=== PATIENT | female | born 1990 | race Caucasian/White ===

== ENCOUNTER 2017-04-10 09:01 | Inpatient (IN) | payer BC ==
[2017-04-10] MEDS ORDERED: Aluminum Hydroxide/Magnesium Hydroxide/Simethicone Susp 30 ML Cup PO PRN (10:18)
[2017-04-10] MEDS ORDERED: Ondansetron 4 MG/2 ML SDV IVPUSH PRN ×2 (10:18→14:20)
[2017-04-10] MEDS ORDERED: Nalbuphine 20 MG/1 ML Amp IVPUSH PRN (10:18)
[2017-04-10] MEDS ORDERED: Oxytocin/Lactated Ringers 10 UNIT/1,000 ML BAG IV SCH (10:30)
[2017-04-10] MEDS: Lactated Ringers 1,000 ML IV SCH ×3 (13:30→17:17)
[2017-04-10] MEDS ORDERED: diphenhydrAMINE 50 MG/ML SDV IVPUSH PRN (14:20)
[2017-04-10] MEDS ORDERED: fentaNYL 100 MCG/2 ML SDV EPIDUR PRN (14:20)
--- NOTE | 2017-04-10 14:23 | PCM.PREANE ---
Preanesthetic Assessment - Anesthesia/Transfusion/Family Hx Anesthesia History: No Prior Anesthesia Family History of Anesthesia Reaction: No Transfusion History: No Prior Transfusion(s) Intubation History: Unknown - Review of Systems General: No Symptoms, Other (Finished Z pack 2 days ago for a cough/cold. Feels much better now. ) Pulmonary: No Symptoms Cardiovascular: No Symptoms Gastrointestinal: No Symptoms Neurological: No Symptoms - Physical Assessment Pulse: 73 O2 Sat by Pulse Oximetry: 100 Respiratory Rate: 16 Blood Pressure: 120/72 Vital Signs: Last Vital Signs Temp 36.6 C 04/10/17 10:13 Pulse 71 04/10/17 10:13 Resp 16 04/10/17 10:13 BP 123/76 04/10/17 10:13 Pulse Ox 100 04/10/17 10:13 Height: 1.7 m Weight: 70.851 kg ASA Class: 2 Mental Status: Alert & Oriented x3 Airway Class: Mallampati = 1 Dentition: Reports: Normal Dentition Thyro-Mental Finger Breadths: 3 Mouth Opening Finger Breadths: 3 ROM/Head Extension: Full Lungs: Clear to Auscultation, Normal Respiratory Effort Cardiovascular: Regular Rate, Regular Rhythm - Lab Values: Laboratory Last Values WBC 12.39 K/mm3 (3.98-10.04) H 04/10/17 10:00 RBC 4.27 M/mm3 (3.98-5.22) 04/10/17 10:00 Hgb 13.5 gm/L (11.2-15.7) 04/10/17 10:00 Hct 39.1 % (34.1-44.9) 04/10/17 10:00 MCV 91.6 fl (79.4-94.8) 04/10/17 10:00 MCH 31.6 pg (25.6-32.2) 04/10/17 10:00 MCHC 34.5 g/dl (32.2-35.5) 04/10/17 10:00 RDW Std Deviation 41.1 fL (36.4-46.3) 04/10/17 10:00 Plt Count 324 K/mm3 (182-369) 04/10/17 10:00 MPV 10.5 fl (9.4-12.3) 04/10/17 10:00 Neut % (Auto) 73.3 % (34.0-71.1) H 04/10/17 10:00 Lymph % (Auto) 16.9 % (19.3-51.7) L 04/10/17 10:00 [place] % (Auto) 8.2 % (4.7-12.5) 04/10/17 10:00 Eos % (Auto) 0.6 (0.7-5.8) L 04/10/17 10:00 Baso % (Auto) 0.2 % (0.1-1.2) 04/10/17 10:00 Neut # (Auto) 9.09 K/mm3 (1.56-6.13) H 04/10/17 10:00 Lymph # (Auto) 2.10 K/mm3 (1.18-3.74) 04/10/17 10:00 [place] # (Auto) 1.01 K/mm3 (0.24-0.36) H 04/10/17 10:00 Eos # (Auto) 0.07 K/mm3 (0.04-0.36) 04/10/17 10:00 Baso # (Auto) 0.02 K/mm3 (0.01-0.08) 04/10/17 10:00 Membrane Rupture Positive H 04/10/17 09:29 - Allergies Allergies/Adverse Reactions: Allergies Allergy/AdvReac Type Severity Reaction Status Date / Time guaifenesin [From Robitussin] Allergy Hives Verified 04/10/17 11:42 - Acknowledgements Anesthesia Type Planned: Epidural Pt an Appropriate Candidate for the Planned Anesthesia: Yes Alternatives and Risks of Anesthesia Discussed w Pt/Guardian: Yes Pt/Guardian Understands and Agrees with Anesthesia Plan: Yes PreAnesthesia Questionnaire - Past Surgical History HEENT Surgical History: Reports: Oral Surgery Other HEENT Surgeries/Procedures: [place] Teeth 2007 - SUBSTANCE USE Smoking Status *Q: Never Smoker Recreational Drug Use History: No - HOME MEDS Home Medications: Home Meds Pnv No.122/Iron/Folic Acid [ Multi Tablet] 1 each PO DAILY 03/28/17 [ History] - CURRENT (IN HOUSE) MEDS Current Meds: Current Medications Al Hydroxide/Mg Hydroxide (Mag-Al Plus) 30 ml PO Q8H PRN PRN Reason: Heartburn Lactated Ringer's (Ringers, Lactated) 1,000 mls @ 100 mls/hr IV ASDIRECTED NATALEE Last Admin: 04/10/17 13:30 Dose: 100 mls/hr Oxytocin/Lactated Ringer's (Pitocin In Lr 10 Units/1,000 Ml) 10 unit in 1,000 mls @ 100 mls/hr IV .CONTINUOUS NATALEE Oxytocin 10 unit/ Lactated (Ringer's) 1,001 mls @ 12.01 mls/hr IV TITRATE NATALEE; 2 MUNITS/MIN PRN Reason: Protocol Last Admin: 04/10/17 14:00 Dose: 2 munits/min, 12 mls/hr Measles/Mumps/Rubella Vaccine Live (M-M-R Ii Vaccine) 0.5 ml SUBCUT .ONCE ONE Stop: 04/11/17 12:02 Nalbuphine HCl (Nubain) 10 mg IVPUSH Q2H PRN PRN Reason: Pain (moderate 4-6) Ondansetron HCl (Zofran) 4 mg IVPUSH Q4H PRN PRN Reason: Nausea/Vomiting
[2017-04-10] MEDS ORDERED: Bupivacaine/fentaNYL/NS 100 ML Bag EPIDUR SCH (14:30)
--- NOTE | 2017-04-10 19:46 | PCM.LDHP ---
L&D History of Present Illness - General Date of Service: 04/10/17 Admit Problem/Dx: Patient Status Order with Admit Dx/Problem 04/10/17 09:29 Patient Status [ADT] Routine 04/10/17 10:13 Patient Status [ADT] Routine Admission Diagnosis/Problem Admission Diagnosis/Problem 04/10/17 19:37 39-5/7 week intrauterine , spontaneous rupture membranes, early active labor. Source of Information: Patient History Limitations: Reports: No Limitations - History of Present Illness Introduction:: Michelle is a 26-year-old 1 para 0 white female who is admitted on the a.m. of 04/10/2017 with spontaneous rupture membranes and early active labor. Her SUZETTE is 04/12/2017 is based upon a ultrasound done 426 6-5/7 weeks gestational age. She's had 4 subsequent ultrasounds which were supportive of her . These being done on 09/19/2016, 12/14/2016, 12/28/2016 and 2016. She had spontaneous rupture of membranes with continuous leakage of clear amniotic fluid this a.m. Her cervix initially was 1-2 cm, approximately 80% effaced, posterior, -3 station, her amniotic fluid, soft. heart tones reassuring. [employer] history she is 1 para 0 with a certain last menstrual period started on 05/30/2016. Dating however is by early ultrasound at 6-5/7 weeks gestational age. Patient had menstrual cycles occurring every 28 days, menarche age 15. course was relatively unremarkable. She declined genetic evaluation on 10/17/2016. [place] depression score was 1 out of 30 on 11/13/2016. She had a history of Gardnerella vaginalis which was treated with metronidazole. Her group B strep screen is negative. She plans to breast-feed. She plans on epidural in labor and delivery report for analgesia. T dap was administered on 03/04/2017. Her first visit was on 09/19/2016 at 10-5/7 weeks gestational age. Her weight gain was from 129.6-146 pounds for a 26+ pound weight gain. Fundal height growth was appropriate. She was seen on a regular basis throughout . Her vital signs remained stable. Laboratory testing and : Blood is O+ with a negative and may screen. First labs show hemoglobin of 14.7 and a platelet count of 332,000. Pap smear was normal. She is rubella nonimmune. RPR is nonreactive. Hepatitis B and HIV assays were negative. Second trimester laboratory testing showed hemoglobin 12.9 and platelets 297,000. Her 1 hour GTT was normal at 65. Group B strep screen is negative. Allergies: Robitussin which causes hives Medications: 1. vitamins daily 2. Zyrtec 10 mg daily when necessary 3. Kass[place] allergy 180 mg tablets daily when necessary for allergies. Past medical history: Seasonal allergies otherwise Unremarkable Past surgical history: 1. Oral surgery 2007 Family history: Mother and father are alive and well. One sibling alive and well. Maternal grandmother alive with adult-onset diabetes mellitus. Maternal grandfather alive and well. Paternal grandmother alive and well. Paternal grandfather alive and well. No , anesthesia, bleeding or clotting problems noted in the family. Review of systems: In general patient is well-developed well-nourished pleasant female who upon admission is relatively comfortable. She is alert and oriented 3. Skin: Negative Cardiovascular: No chest pain or exercise tolerance Respiratory: No infectious symptoms or shortness of breath Breasts: Negative. Changes os with only GI: Negative : Changes associated including increased fundal height Musculoskeletal: Occasional minimal edema noted Neurological: Negative Physical exam: In general patient is well-developed, well-nourished, pleasant female stated age in no acute distress. Blood pressure 102/68, weight 153 and heart rate 121 on last evaluation in clinic. Her pregravid weight was 129.6, height 5 feet 7. Prepregnancy body mass index is 19.6. Skin is warm and dry without lesions. HEENT, neck and back within normal limits. Lungs are clear with good breath sounds in all lung kohler. Cardiovascular exam shows regular rate and rhythm without murmurs. Breast exam deferred abdomen done at first visit and found to be normal. Abdomen is protuberant with last fundal height in clinic at approximately 37 cm. Cervix as above Extremities neurological exam are grossly within normal limits. Pain Score: 10 - Related Data Allergies/Adverse Reactions: Allergies Allergy/AdvReac Type Severity Reaction Status Date / Time guaifenesin [From Robitussin] Allergy Hives Verified 04/10/17 11:42 Home Medications: Home Meds Pnv No.122/Iron/Folic Acid [ Multi Tablet] 1 each PO DAILY 03/28/17 [ History] Past Medical History - Past Surgical History HEENT Surgical History: Reports: Oral Surgery Other HEENT Surgeries/Procedures: [place] Teeth 2008 Social & Family History - Family History Family Medical History: Noncontributory - Tobacco Use Smoking Status *Q: Never Smoker - Caffeine Use Caffeine Use: Reports: None - Recreational Drug Use Recreational Drug Use: No H&P Review of Systems - Review of Systems: Review Of Systems: See Below L&D Exam - Exam Exam: See Below - Vital Signs Vital Signs: Last Vital Signs Temp 36.6 C 04/10/17 10:13 Pulse 73 04/10/17 14:23 Resp 16 04/10/17 14:23 BP 120/72 04/10/17 14:23 Pulse Ox 100 04/10/17 14:23 Weight: 70.851 kg - Patient Data Lab Results Last 24 hrs: Laboratory Results - last 24 hr 04/10/17 04/10/17 Range/Units 09:29 10:00 WBC 12.39 H (3.98-10.04) K/mm3 RBC 4.27 (3.98-5.22) M/mm3 Hgb 13.5 (11.2-15.7) gm/L Hct 39.1 (34.1-44.9) % MCV 91.6 (79.4-94.8) fl MCH 31.6 (25.6-32.2) pg MCHC 34.5 (32.2-35.5) g/dl RDW Std Deviation 41.1 (36.4-46.3) fL Plt Count 324 (182-369) K/mm3 MPV 10.5 (9.4-12.3) fl Neut % (Auto) 73.3 H (34.0-71.1) % Lymph % (Auto) 16.9 L (19.3-51.7) % [place] % (Auto) 8.2 (4.7-12.5) % Eos % (Auto) 0.6 L (0.7-5.8) Baso % (Auto) 0.2 (0.1-1.2) % Neut # (Auto) 9.09 H (1.56-6.13) K/mm3 Lymph # (Auto) 2.10 (1.18-3.74) K/mm3 [place] # (Auto) 1.01 H (0.24-0.36) K/mm3 Eos # (Auto) 0.07 (0.04-0.36) K/mm3 Baso # (Auto) 0.02 (0.01-0.08) K/mm3 Membrane Rupture Positive H Result Diagrams: 04/10/17 10:00 Problem List Initiated/Reviewed/Updated: Yes Orders Last 24hrs: Active Orders 24 hr Category Date Time Status Patient Status [ADT] Routine ADT 04/10/17 10:13 Active Activity as Tolerated [RC] PFP Care 04/10/17 10:13 Active Communication Order [RC] ASDIRECTED Care 04/10/17 10:13 Active Notify Provider [RC] ASDIRECTED Care 04/10/17 14:20 Active Vaccines to be Administered [RC] .discharge Care 04/10/17 12:01 Active Regular Diet [DIET] Diet 04/10/17 Lunch Active Alum Hydrox/Mag Hydrox/Simeth [Mag-Al Plus] Med 04/10/17 10:18 Active 30 ml PO Q8H PRN Bupivacaine/fentaNYL/NS [fentaNYL/Bupivacaine/NS 2 MCG- Med 04/10/17 14:30 Active 0.125% 100 ML] 100 ml EPIDUR ASDIRECTED Lactated Ringers [Ringers, Lactated] 1,000 ml Med 04/10/17 10:15 Active IV ASDIRECTED Measles, Mumps & Rubella [M-M-R II Vaccine] Med 04/11/17 12:01 Once 0.5 ml SUBCUT .ONCE ONE Nalbuphine [Nubain] Med 04/10/17 10:18 Active 10 mg IVPUSH Q2H PRN Ondansetron [Zofran] Med 04/10/17 10:18 Active 4 mg IVPUSH Q4H PRN Oxytocin [Pitocin] 10 unit Med 04/10/17 12:00 Active Lactated Ringers [Ringers, Lactated] 1,000 ml IV TITRATE Oxytocin/Lactated Ringers [Pitocin in LR 10 Units/1,000 Med 04/10/17 10:30 Active ML] 10 unit in 1,000 ml IV .CONTINUOUS diphenhydrAMINE [Benadryl] Med 04/10/17 14:20 Active 25 mg IVPUSH Q6H PRN Electronic Heart Tones Ext w TOCO [WOMSER] Oth 04/10/17 10:13 Ordered Routine Electronic Heart Tones Internal [WOMSER] Per Unit Ot 04/10/17 10:13 Ordered Routine Peripheral IV Insertion Adult [OM.PC] Routine Ot 04/10/17 10:13 Ordered Resuscitation Status Routine Resus Stat 04/10/17 09:29 Ordered Medication Orders Al Hydroxide/Mg Hydroxide (Mag-Al Plus) 30 ml PO Q8H PRN PRN Reason: Heartburn Diphenhydramine HCl (Benadryl) 25 mg IVPUSH Q6H PRN PRN Reason: Pruritis Fentanyl/Bupivacaine HCl (Fentanyl/Bupivacaine/Ns 2 Mcg-0.125% 100 Ml) 100 ml EPIDUR ASDIRECTED NATALEE Last Admin: 04/10/17 17:01 Dose: 100 ml Lactated Ringer's (Ringers, Lactated) 1,000 mls @ 100 mls/hr IV ASDIRECTED NATALEE Last Admin: 04/10/17 17:17 Dose: 100 mls/hr Infusion: 04/10/17 17:04 Dose: 999 mls/hr Admin: 04/10/17 16:03 Dose: 999 mls/hr Infusion: 04/10/17 16:03 Dose: 100 mls/hr Admin: 04/10/17 13:30 Dose: 100 mls/hr Oxytocin/Lactated Ringer's (Pitocin In Lr 10 Units/1,000 Ml) 10 unit in 1,000 mls @ 100 mls/hr IV .CONTINUOUS NATALEE Oxytocin 10 unit/ Lactated (Ringer's) 1,001 mls @ 12.01 mls/hr IV TITRATE NATLAEE; 2 MUNITS/MIN PRN Reason: Protocol Last Titration: 04/10/17 14:50 Dose: 4 munits/min, 24 mls/hr Admin: 04/10/17 14:00 Dose: 2 munits/min, 12 mls/hr Measles/Mumps/Rubella Vaccine Live (M-M-R Ii Vaccine) 0.5 ml SUBCUT .ONCE ONE Stop: 04/11/17 12:02 Nalbuphine HCl (Nubain) 10 mg IVPUSH Q2H PRN PRN Reason: Pain (moderate 4-6) Ondansetron HCl (Zofran) 4 mg IVPUSH Q4H PRN PRN Reason: Nausea/Vomiting Assessment/Plan Comment:: Assessment: Prep 1. 39-5/7 week intrauterine , spontaneous rupture membranes, early labor and prepped 2. Group B strep screen negative 3. Patient plans to nurse 4. Up-to-date regarding her Tdap and flu shot 5. Patient desires epidural in labor and delivery 6. Rubella immune Plan: 1. Anticipate normal spontaneous vaginal delivery 2. Intermittent electronic monitoring 3. Epidural as needed and 4. Encourage nursing 5. Routine labor care.
--- NOTE | 2017-04-10 21:35 | PCM.SN ---
- Free Text/Narrative Note: Michelle is a 26-year-old 1 now para 1001 white female who experienced spontaneous rupture membranes at 0500 hrs. on 04/10/2017. She almost immediately began having contractions. This labor progressed to every 3-5 minutes at which time patient called labor and delivery and was told to come in. Throughout the course of the day patient made steady progress to complete cervical dilatation by approximately 2010 hrs. She began pushing and in the course of the next 55 minutes achieved delivery of a viable, chappell, male with Apgars of 9 and 9, a length of 20.0 inches, a weight of 3160 g (6 pounds 15.5 ounces) in an occiput anterior position at 2105 hrs. on 04/10/2017. Baby was placed on mom's abdomen. Nose and mouth were bulb suctioned. Cord was clamped 2 and then was cut by the father of the baby. Cord blood was obtained. The placenta delivered in a routine fashion, Dunne presentation, appeared intact and complete and had a 3 vessel umbilical cord. It was discarded per patient's desire. Patient had a second-degree perineal laceration which was repaired in a routine fashion with 3-0 Monocryl suture. Epidural was used for labor and analgesia and an was adequate for laceration repair. Estimated blood loss was 100 mL.'s. Patient plans to breast-feed. Condition: Good
[2017-04-10] MEDS ORDERED: Lanolin 100% Cream 7 GM Tube TOP PRN (21:55)
[2017-04-10] MEDS ORDERED: Benzocaine/Menthol 20%-0.5% Spray 56 GM Canister TOP PRN (21:55)
[2017-04-10] MEDS ORDERED: Acetaminophen 325 MG Tab PO PRN (21:55)
[2017-04-10] MEDS ORDERED: Docusate Sodium 100 MG Cap PO PRN (21:55)
[2017-04-10] MEDS ORDERED: Witch Hazel Medicated Pads 100/Jar TOP PRN (21:55)
[2017-04-10] MEDS ORDERED: Bupivacaine 0.25% 10 ML SDV ONE (22:22)
[2017-04-10] MEDS: Ibuprofen 600 MG Tab PO PRN (23:15)
--- NOTE | 2017-04-11 06:48 | PCM48HPAN ---
Post Anesthesia Note - EVALUATION WITHIN 48HRS OF ANESTHETIC Vital Signs in Normal Range: Yes Patient Participated in Evaluation: Yes Respiratory Function Stable: Yes Airway Patent: Yes Cardiovascular Function Stable: Yes Hydration Status Stable: Yes Pain Control Satisfactory: Yes Nausea and Vomiting Control Satisfactory: Yes Mental Status Recovered: Yes
[2017-04-11] MEDS: Ibuprofen 600 MG Tab PO PRN ×2 (08:54→19:53)
[2017-04-11] MEDS: Prenatal Multivitamin with Calcium/Folic Acid/Iron Tab PO SCH (08:55)
[2017-04-11] MEDS ORDERED: Measles, Mumps & Rubella Vaccine 0.5 ML SDV SUBCUT ONE (12:01)
[2017-04-12] MEDS: Prenatal Multivitamin with Calcium/Folic Acid/Iron Tab PO SCH (09:20)
--- NOTE | 2017-04-12 10:36 | PCM.DCSUM1 ---
Discharge Summary - Hospital Course Free Text/Narrative:: Michelle is a 26-year-old 1 now para 1001 white female who experienced spontaneous rupture membranes at 0500 hrs. on 04/10/2017. She almost immediately began having contractions. This labor progressed to every 3-5 minutes at which time patient called labor and delivery and was told to come in. Throughout the course of the day patient made steady progress to complete cervical dilatation by approximately 2010 hrs. She began pushing and in the course of the next 55 minutes achieved delivery of a viable, chappell, male infant with Apgars of 9 and 9, a length of 20.0 inches, a weight of 3160 g (6 pounds 15.5 ounces) in an occiput anterior position at 2105 hrs. on 04/10/2017. Baby was placed on mom's abdomen. Nose and mouth were bulb suctioned. Cord was clamped 2 and then was cut by the father of the baby. Cord blood was obtained. The placenta delivered in a routine fashion, Dunne presentation, appeared intact and complete and had a 3 vessel umbilical cord. It was discarded per patient's desire. Patient had a second-degree perineal laceration which was repaired in a routine fashion with 3-0 Monocryl suture. Epidural was used for labor and analgesia and an was adequate for laceration repair. Estimated blood loss was 100 mL.'s. Patient plans to breast-feed. patient is done well. She is ambulating well, nursing without concerns and voiding without problems. Her post CBC is within normal limits for the period. Patient is desiring discharge. - Discharge Data Discharge Date: 04/12/17 Discharge Disposition: Home, Self-Care 01 Condition: Good - Patient Instructions Diet: Regular Diet as Tolerated (Nursing diet with increased calories and calcium as directed) Activity: As Tolerated (No intercourse or tampons until bleeding resolves) Driving: May Drive Today Showering/Bathing: May Shower Showering/Bathing, Other: May take a bath Notify Provider of: Fever, Increased Pain, Swelling and Redness, Nausea and/or Vomiting - Discharge Plan Home Medications: Home Meds Pnv No.122/Iron/Folic Acid [ Multi Tablet] 1 each PO DAILY 03/28/17 [ History] Ibuprofen [IJD: Ibuprofen] 600 mg PO Q4H PRN tablet 04/12/17 [Rx] Referrals: Connor Quiñonez MD [Primary Care Provider] - (Return to [facility] [place] [address].) - Discharge Summary/Plan Comment DC Time >30 min.: No Discharge Summary/Plan Comment: Discharge instructions: 1. Discharge home 2. Diet, activity and follow-up discussed with patient. Recommend nursing diet with increased calories and calcium. 3. Precautions given concern increased pain, bleeding, temperature, signs/ symptoms of DVT/PE. 4. Medications per home medication was printed, discussed with and given to the patient. 5. Return to clinic-Dr. Quiñonez-[facility] in 2 weeks. Diagnosis: Term -delivered Condition: Good - Patient Data Vitals - Most Recent: Last Vital Signs Temp 37.1 C 04/12/17 03:53 Pulse 65 04/12/17 03:41 Resp 18 04/12/17 03:53 BP 118/78 04/12/17 03:41 Pulse Ox 99 04/12/17 03:53 Weight - Most Recent: 70.851 kg I&O - Last 24 hours: Intake & Output 04/11/17 04/12/17 04/12/17 22:59 06:59 14:59 Intake Total 420 Balance 420 Med Orders - Current: Current Medications Acetaminophen (Tylenol) 650 mg PO Q4H PRN PRN Reason: mild pain or fever Benzocaine/Menthol (Dermoplast Pain Relief Almo) 0 gm TOP ASDIRECTED PRN PRN Reason: Perineal Comfort Measure Last Admin: 04/10/17 23:13 Dose: 1 applic Docusate Sodium (Colace) 100 mg PO BID PRN PRN Reason: Constipation Last Admin: 04/12/17 09:36 Dose: 100 mg Emollient Ointment (Lansinoh Hpa) 0 gm TOP ASDIRECTED PRN PRN Reason: Sore Nipples Last Admin: 04/11/17 16:40 Dose: 1 drop Ibuprofen (Motrin) 600 mg PO Q4H PRN PRN Reason: Mild pain or fever Last Admin: 04/11/17 19:53 Dose: 600 mg Prenat Multivit/Saw Edge Fuser Circular/Iron/Folic Ac ( Plus Iron) 1 each PO DAILY NATALEE Last Admin: 04/12/17 09:20 Dose: 1 each Zechariah Paredes (Lesly) 1 pad TOP ASDIRECTED PRN PRN Reason: Hemorrhoid pain Last Admin: 04/10/17 23:13 Dose: 1 applic Discontinued Medications Al Hydroxide/Mg Hydroxide (Mag-Al Plus) 30 ml PO Q8H PRN PRN Reason: Heartburn Bupivacaine HCl (Sensorcaine-Mpf 0.25%) 10 ml .ROUTE .STK-MED ONE Stop: 04/10/17 22:23 Diphenhydramine HCl (Benadryl) 25 mg IVPUSH Q6H PRN PRN Reason: Pruritis Fentanyl (Sublimaze) 100 mcg EPIDUR ONETIME PRN PRN Reason: Pain Stop: 04/10/17 18:00 Last Admin: 04/10/17 17:00 Dose: 100 mcg Fentanyl/Bupivacaine HCl (Fentanyl/Bupivacaine/Ns 2 Mcg-0.125% 100 Ml) 100 ml EPIDUR ASDIRECTED NATALEE Last Admin: 04/10/17 17:01 Dose: 100 ml Lactated Ringer's (Ringers, Lactated) 1,000 mls @ 100 mls/hr IV ASDIRECTED NATALEE Last Admin: 04/10/17 17:17 Dose: 100 mls/hr Oxytocin/Lactated Ringer's (Pitocin In Lr 10 Units/1,000 Ml) 10 unit in 1,000 mls @ 100 mls/hr IV .CONTINUOUS NATALEE Last Admin: 04/10/17 21:05 Dose: 100 mls/hr Oxytocin 10 unit/ Lactated (Ringer's) 1,001 mls @ 12.01 mls/hr IV TITRATE NATALEE; 2 MUNITS/MIN PRN Reason: Protocol Last Titration: 04/10/17 14:50 Dose: 4 munits/min, 24 mls/hr Measles/Mumps/Rubella Vaccine Live (M-M-R Ii Vaccine) 0.5 ml SUBCUT .ONCE ONE Stop: 04/11/17 12:02 Nalbuphine HCl (Nubain) 10 mg IVPUSH Q2H PRN PRN Reason: Pain (moderate 4-6) Ondansetron HCl (Zofran) 4 mg IVPUSH Q4H PRN PRN Reason: Nausea/Vomiting Ondansetron HCl (Zofran) 4 mg IVPUSH ONETIME PRN PRN Reason: Nausea/Vomiting Stop: 04/10/17 18:00 *Q Meaningful Use (DIS) - VTE *Q VTE Criteria *Q: - Stroke *Q Stroke Criteria *Q: - AMI *Q AMI Criteria *Q:
[2017-04-12] MEDS ORDERED: Measles, Mumps & Rubella Vaccine 0.5 ML SDV SUBCUT ONE (12:27)
== END 2017-04-12 14:40 | disposition home or self-care (01) | DRG 560 ==
LOC: JD.OBCHECK 09:01 → JD.OB 09:02 → JD.OBCHECK 10:12 → JD.OB 10:13 → OBSVTOIN 21:05
PROVIDERS: ADMIT Obstetrics & Gynecology; ATTEND Obstetrics & Gynecology
PROC: 10E0XZZ Delivery of Products of Conception, External Approach (ICD-10-PCS; principal; 2017-04-10)
PROC: 0KQM0ZZ Repair Perineum Muscle, Open Approach (ICD-10-PCS; 2017-04-10)
PROC: 00HU33Z Insertion of Infusion Device into Spinal Canal, Percutaneous Approach (ICD-10-PCS; 2017-04-10)
PROC: 3E0R3BZ Introduction of Anesthetic Agent into Spinal Canal, Percutaneous Approach (ICD-10-PCS; 2017-04-10)
DX: O42.92 Full-term premature rupture of membranes, unspecified as to length of time between rupture and onset of labor (principal); O70.1 Second degree perineal laceration during delivery; O69.81X0 Labor and delivery complicated by cord around neck, without compression, not applicable or unspecified; Z3A.40 40 weeks gestation of pregnancy; Z37.0 Single live birth; Z88.8 Allergy status to other drugs, medicaments and biological substances
CPT/HCPCS: 36415; 51702; 59300; 59409; 84112; 85025; 85027; 90471; 90707; A9270-GY; J2590; J3010; J7120

== ENCOUNTER 2019-02-24 15:15 | Inpatient (IN) | payer BC ==
[~2019-02-24 15:15] MED LIST: Bupivacaine 0.25% 10 ML SDV ONE
[2019-02-24] MEDS ORDERED: Ondansetron 4 MG/2 ML SDV IVPUSH PRN (15:22)
[2019-02-24] MEDS ORDERED: fentaNYL/Bupivacaine/NS 2 MCG-0.125% 250 ML EPIDUR PRN (15:22)
[2019-02-24] MEDS ORDERED: fentaNYL 100 MCG/2 ML SDV EPIDUR PRN (15:22)
[2019-02-24] MEDS ORDERED: ePHEDrine 50 MG/ML SDV IVPUSH PRN (15:22)
--- NOTE | 2019-02-24 15:25 | PCM.PREANE ---
Preanesthetic Assessment - Anesthesia/Transfusion/Family Hx Anesthesia History: Prior Anesthesia Without Reaction (wisdom teeth) Family History of Anesthesia Reaction: No Transfusion History: No Prior Transfusion(s) Intubation History: Unknown - Review of Systems General: No Symptoms Pulmonary: No Symptoms Cardiovascular: No Symptoms Gastrointestinal: No Symptoms Neurological: No Symptoms Other: Reports: None - Physical Assessment NPO Status Date: 02/24/19 NPO Status Time: 12:00 Vital Signs: HR: 79 Sat: 100% BP: 118/77 Resp:18 Temp:37.1 Height: 1.7 m Weight: 71 kg ASA Class: 2 Mental Status: Alert & Oriented x3 Airway Class: Mallampati = 2 Dentition: Reports: Normal Dentition, [place] Thyro-Mental Finger Breadths: 3 Mouth Opening Finger Breadths: 3 ROM/Head Extension: Full Lungs: Clear to Auscultation, Normal Respiratory Effort Cardiovascular: Regular Rate, Regular Rhythm, No Murmurs - Lab Values: All labs reviewed and noted and within acceptable ranges to proceed with epidural. - Allergies Allergies/Adverse Reactions: Allergies Allergy/AdvReac Type Severity Reaction Status Date / Time guaifenesin [From Robitussin] Allergy Hives Verified 02/24/19 15:46 - Anesthesia Plan Pre-Op Medication Ordered: None - Acknowledgements Anesthesia Type Planned: Epidural Pt an Appropriate Candidate for the Planned Anesthesia: Yes Alternatives and Risks of Anesthesia Discussed w Pt/Guardian: Yes Pt/Guardian Understands and Agrees with Anesthesia Plan: Yes PreAnesthesia Questionnaire - Past Surgical History HEENT Surgical History: Reports: Oral Surgery Other HEENT Surgeries/Procedures: [place] Teeth 2007 - HOME MEDS Home Medications: Home Meds Pnv No.122/Iron/Folic Acid [ Multi Tablet] 1 each PO DAILY 03/28/17 [ History] Ibuprofen [IJD: Ibuprofen] 600 mg PO Q4H PRN tablet 04/12/17 [Rx] - CURRENT (IN HOUSE) MEDS Current Meds: Current Medications Ephedrine Sulfate (Ephedrine Sulfate) 5 mg IVPUSH ASDIRECTED PRN PRN Reason: Hypotension Fentanyl (Sublimaze) 100 mcg EPIDUR Q3H PRN PRN Reason: Pain Fentanyl/Bupivacaine HCl (Fentanyl/Bupivacaine/Ns 2 Mcg-0.125% 250 Ml) ml EPIDUR CONTINUOUS PRN PRN Reason: Pain Phenylephrine HCl 1 mg/ Sodium (Chloride) 10.1 mls @ 1 mls/sec IV TITRATE NATALEE; Protocol Ondansetron HCl (Zofran) 4 mg IVPUSH ONETIME PRN PRN Reason: Nausea/Vomiting
[2019-02-24] MEDS ORDERED: Phenylephrine 1 MG in Sodium Chloride 0.9% 10 ML IV SCH (15:30)
[2019-02-24] MEDS ORDERED: Ondansetron 4 MG Tab.DIS PO PRN (15:46)
[2019-02-24] MEDS ORDERED: Nalbuphine 10 MG/1 ML Vial IVPUSH PRN (15:46)
[2019-02-24] MEDS ORDERED: Sodium Chloride 0.9% 10 ML Syringe FLUSH PRN (15:46)
[2019-02-24] MEDS ORDERED: Lidocaine 1% 50 ML MDV INJECT ONE (15:46)
[2019-02-24] MEDS ORDERED: Oxytocin/Lactated Ringers 10 UNIT/1,000 ML BAG IV SCH ×2 (16:00)
[2019-02-24] MEDS: Lactated Ringers 1,000 ML IV SCH ×2 (16:48→18:12)
--- NOTE | 2019-02-24 19:28 | PCM.SN ---
- Free Text/Narrative Note: Michelle is a 28-year-old 2 now para 2002 j 40-0/7 weeks gestational age is 02/24/2019 who had spontaneous rupture membranes at approximately 1400 hrs. today. She went into active labor and rapidly achieved complete cervical dilation by approximately 1830 hrs. She underwent epidural for labor analgesia. Patient pushed very well and delivered a viable, chappell, female infant with Apgars of 7 and 9, length of 20.0 inches and a weight of 2790 g (6 lbs. 9 oz.). Baby delivered in a direct occiput anterior position. Shoulders delivered without problems and baby completely delivered after. After delivery baby was placed on mom's abdomen. Nose and mouth were bulb suctioned. Cord was allowed to pulsate for approximately 2 minutes and was clamped 2 and cut by the baby's father. The umbilical cord had 3 vessels. Cord blood was obtained. Pitocin 500 mL per hour was started after delivery to facilitate increasing uterine tone and decreased likelihood of bleeding. Patient had a minimal first-degree perineal laceration which was repaired with 3-0 Monocryl with 2 sutures. Epidural analgesia was used for perineal anesthesia for the repair. The placenta delivered in a Dunne presentation, appeared intact and complete and was discarded per patient desire. The estimated blood loss was 100 mL.Patient plans to breast-feed. Condition: Good.
--- NOTE | 2019-02-24 20:20 | PCM.LDHP ---
<Kinza Conrad R - Last Filed: 02/25/19 17:55> L&D History of Present Illness - General Date of Service: 02/24/19 Admit Problem/Dx: Patient Status Order with Admit Dx/Problem 02/24/19 15:46 Patient Status [ADT] Routine Admission Diagnosis/Problem Admission Diagnosis/Problem Source of Information: Patient History Limitations: Reports: No Limitations - History of Present Illness Introduction:: Michelle is a 28-year-old 2 para 1001 white female at 40-0/7 weeks gestational age with an SUZETTE of 02/24/2019 who was admitted in active labor with progressive cervical dilation. Spontaneous rupture of membranes occurred at 1400 while at work. Her contractions progressed to every 2-3 minutes by 1745 when we arrived to examine her. Presently, her cervix is dilated to 4 cm, 90% effaced, -1 station, cephalic presentation. Heart tones are reassuring. Epidural has been ordered and will be administered shortly. Last menstrual period is unknown. She reports that her cycles have been irregular. She was not using control at conception. Ultrasound done and suggests that she is at 11-2/7 weeks gestational age. Patient plans to breastfeed. course: Patient was initially seen on 08/07/2018 and ultrasound confirmed dates. She was seen on a regular basis throughout the . She is GBS negative. Her immunizations are up to date, including a Td booster given on 12/23/2018. During the course of her care, her weight increased from 132.4 lbs. to 156.8 lbs (24.4 pound weight gain). She took vitamins consistently throughout her . Vital signs remained stable throughout her course. Laboratory testing showed her blood type to be O pos. Her antibody screen is negative. Hemoglobin at first visit was 13.1 g/dL and platelets are 330 ,000. She is rubella immune. RPR was negative. Urine culture showed mixed bernardo that suggested contamination, but no overt infection. HbSAg is negative. HIV, chlamydia, and gonorrhea testing were declined. Second trimester labs showed hemoglobin of 13.0 g/dL. Platelets were 287,000. One-hour GTT was normal at 65. Her GBS was negative. Pain Score: 5 - Related Data Allergies/Adverse Reactions: Allergies Allergy/AdvReac Type Severity Reaction Status Date / Time guaifenesin [From Robitussin] Allergy Hives Verified 02/24/19 15:46 Home Medications: Home Meds Pnv No.122/Iron/Folic Acid [ Multi Tablet] 1 each PO DAILY 03/28/17 [ History] Ibuprofen [IJD: Ibuprofen] 600 mg PO Q4H PRN tablet 04/12/17 [Rx] Past Medical History - Past Health History Medical/Surgical History: Denies Medical/Surgical History HEENT History: Reports: Allergic Rhinitis MANAGER GENERATION History: Reports: : 2 Para: 1 LMP (Approximate): Other OB/BYN History: Patient's past obstetric history is as follows: 1. Male infant born via [birth year]/10[birth year]2017 at 39-5/7 weeks with 16 hours of labor. Weight was 6 lbs. 15 oz. She was given an epidural for pain control. Child's name is Blas. - Past Surgical History HEENT Surgical History: Reports: Oral Surgery Other HEENT Surgeries/Procedures: Gunpowder Teeth 2007 Social & Family History - Family History Family Medical History: Noncontributory - Tobacco Use Smoking Status *Q: Never Smoker Second Hand Smoke Exposure: No - Caffeine Use Caffeine Use: Reports: None - Recreational Drug Use Recreational Drug Use: No - Living Situation & Occupation Living situation: Reports: , with Spouse Occupation: Employed Social History Comment: She is a college graduate. 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 She does not use any significant alcohol, drugs, or tobacco. She lives in [place], [place]. H&P Review of Systems - Review of Systems: Review Of Systems: See Below General: Reports: No Symptoms HEENT: Reports: No Symptoms Pulmonary: Reports: No Symptoms Cardiovascular: Reports: No Symptoms Gastrointestinal: Reports: No Symptoms Genitourinary: Reports: No Symptoms Musculoskeletal: Reports: No Symptoms Skin: Reports: No Symptoms Psychiatric: Reports: No Symptoms Neurological: Reports: No Symptoms Hematologic/Lymphatic: Reports: No Symptoms Immunologic: Reports: No Symptoms L&D Exam - Exam Exam: See Below - Vital Signs Vital Signs: Last Vital Signs Temp 98.7 F 02/24/19 15:34 Pulse 79 02/24/19 15:34 Resp 18 02/24/19 15:34 BP 118/77 02/24/19 15:34 Pulse Ox 100 02/24/19 15:34 Weight: 71 kg - OB Specific Contraction Frequency (min): 3 Contraction Intensity: Moderate to Strong Movement: Active Heart Tones: Present Heart Rate (FHR) Variability: Moderate (6-25 bmp) Presentation: Vertex - Exam General: Alert, Oriented, Cooperative, Moderate Distress Lungs: Clear to Auscultation, Normal Respiratory Effort Cardiovascular: Regular Rate, Regular Rhythm GI/Abdominal Exam: Other (Gravid) Rectal Exam: Hemorrhoids Genitourinary: Normal external exam (See HPI for pertinent findings. Patient in active labor upon exam.) Extremities: Normal Inspection, No Pedal Edema Skin: Warm, Intact Psychiatric: Normal Affect, Normal Mood - Patient Data Lab Results Last 24 hrs: Laboratory Results - last 24 hr 02/24/19 Range/Units 16:00 WBC 12.22 H (3.98-10.04) K/mm3 RBC 3.89 L (3.98-5.22) M/mm3 Hgb 11.7 (11.2-15.7) gm/dl Hct 34.5 (34.1-44.9) % MCV 88.7 D (79.4-94.8) fl MCH 30.1 (25.6-32.2) pg MCHC 33.9 (32.2-35.5) g/dl RDW Std Deviation 39.5 (36.4-46.3) fL Plt Count 327 (182-369) K/mm3 MPV 9.9 (9.4-12.3) fl Neut % (Auto) 72.8 H (34.0-71.1) % Lymph % (Auto) 16.5 L (19.3-51.7) % Ness % (Auto) 9.0 (4.7-12.5) % Eos % (Auto) 0.5 L (0.7-5.8) Baso % (Auto) 0.2 (0.1-1.2) % Neut # (Auto) 8.89 H (1.56-6.13) K/mm3 Lymph # (Auto) 2.02 (1.18-3.74) K/mm3 Ness # (Auto) 1.10 H (0.24-0.36) K/mm3 Eos # (Auto) 0.06 (0.04-0.36) K/mm3 Baso # (Auto) 0.03 (0.01-0.08) K/mm3 Manual Slide Review Abnormal smear Result Diagrams: 02/24/19 16:00 - Problem List (1) Normal labor SNOMED Code(s): 37542981 ICD Code: O80 - ENCOUNTER FOR FULL-TERM UNCOMPLICATED DELIVERY; Z37.9 - OUTCOME OF DELIVERY, UNSPECIFIED Status: Acute Current Visit: Yes Problem List Initiated/Reviewed/Updated: Yes Orders Last 24hrs: Active Orders 24 hr Category Date Time Status Patient Status Manage Transfer [TRANSFER] Routine ADT 02/24/19 19:18 Active Patient Status [ADT] Routine ADT 02/24/19 15:46 Active Activity as Tolerated [RC] PFP Care 02/24/19 15:46 Active Communication Order [RC] ASDIRECTED Care 02/24/19 15:46 Active Heart Tones [RC] ASDIRECTED Care 02/24/19 15:46 Active Non Stress Test [RC] PER UNIT ROUTINE Care 02/24/19 15:46 Active Notify Provider [RC] ASDIRECTED Care 02/24/19 15:22 Active Notify Provider [RC] PFP Care 02/24/19 15:46 Active Notify Provider [RC] PRN Care 02/24/19 15:46 Active Oxygen Therapy [RC] ASDIRECTED Care 02/24/19 15:22 Active Peripheral IV Care [RC] . DIRECTED Care 02/24/19 15:46 Active Pulse Oximetry [RC] ASDIRECTED Care 02/24/19 15:22 Active Vital Signs [RC] PER UNIT ROUTINE Care 02/24/19 15:46 Active Regular Diet [DIET] Diet 02/24/19 Dinner Active RAPID PLASMA REAGIN,RPR [CHEM] Routine Lab 02/24/19 16:00 Received Bupivicaine/fentaNYL/NS [fentaNYL/Bupivacaine/NS 2 MCG- Med 02/24/19 15:22 Active 0.125% 250 ML] 250 ml EPIDUR CONTINUOUS PRN Lactated Ringers [Ringers, Lactated] 1,000 ml Med 02/24/19 16:00 Active IV ASDIRECTED Nalbuphine [Nubain] Med 02/24/19 15:46 Active 10 mg IVPUSH Q2H PRN Ondansetron [Zofran ODT] Med 02/24/19 15:46 Active 4 mg PO Q4H PRN Ondansetron [Zofran] Med 02/24/19 15:22 Active 4 mg IVPUSH ONETIME PRN Oxytocin/Lactated Ringers [Pitocin in LR 10 Units/1,000 Med 02/24/19 16:00 Active ML] 10 unit in 1,000 ml IV .CONTINUOUS Oxytocin/Lactated Ringers [Pitocin in LR 10 Units/1,000 Med 02/24/19 16:00 Active ML] 10 unit in 1,000 ml IV TITRATE Phenylephrine [Maxx-Synephrine] 1 mg Med 02/24/19 15:30 Active Sodium Chloride 0.9% [Normal Saline] 10 ml IV TITRATE Sodium Chloride 0.9% [Saline Flush] Med 02/24/19 15:46 Active 10 ml FLUSH ASDIRECTED PRN ePHEDrine [ePHEDrine sulfate] Med 02/24/19 15:22 Active 5 mg IVPUSH ASDIRECTED PRN fentaNYL [Sublimaze] Med 02/24/19 15:22 Active 100 mcg EPIDUR Q3H PRN Electronic Heart Tones Ext w TOCO [WOMSER] Oth 02/24/19 15:46 Ordered Routine Electronic Heart Tones Internal [WOMSER] Per Unit Oth 02/24/19 15:46 Ordered Routine Peripheral IV Insertion Adult [OM.PC] Routine Oth 02/24/19 15:46 Ordered Resuscitation Status Routine Resus Stat 02/24/19 15:46 Ordered Medication Orders Ephedrine Sulfate (Ephedrine Sulfate) 5 mg IVPUSH ASDIRECTED PRN PRN Reason: Hypotension Fentanyl (Sublimaze) 100 mcg EPIDUR Q3H PRN PRN Reason: Pain Last Admin: 02/24/19 17:53 Dose: 100 mcg Fentanyl/Bupivacaine HCl (Fentanyl/Bupivacaine/Ns 2 Mcg-0.125% 250 Ml) 250 ml EPIDUR CONTINUOUS PRN PRN Reason: Pain Last Admin: 02/24/19 17:54 Dose: 250 ml Phenylephrine HCl 1 mg/ Sodium (Chloride) 10.1 mls @ 1 mls/sec IV TITRATE NATALEE; Protocol Lactated Ringer's (Ringers, Lactated) 1,000 mls @ 100 mls/hr IV ASDIRECTED NATALEE Last Admin: 02/24/19 18:12 Dose: 100 mls/hr Infusion: 02/24/19 18:12 Dose: 100 mls/hr Admin: 02/24/19 16:48 Dose: 100 mls/hr Oxytocin/Lactated Ringer's (Pitocin In Lr 10 Units/1,000 Ml) 10 unit in 1,000 mls @ 500 mls/hr IV .CONTINUOUS NATALEE Last Admin: 02/24/19 19:05 Dose: 500 mls/hr Oxytocin/Lactated Ringer's (Pitocin In Lr 10 Units/1,000 Ml) 10 unit in 1,000 mls @ 12 mls/hr IV TITRATE NATALEE; Protocol Nalbuphine HCl (Nubain) 10 mg IVPUSH Q2H PRN PRN Reason: Pain Ondansetron HCl (Zofran) 4 mg IVPUSH ONETIME PRN PRN Reason: Nausea/Vomiting Ondansetron HCl (Zofran Odt) 4 mg PO Q4H PRN PRN Reason: Nausea/Vomiting Sodium Chloride (Saline Flush) 10 ml FLUSH ASDIRECTED PRN PRN Reason: Keep Vein Open Assessment/Plan Comment:: Assessment: Patient presents to Labor & Delivery with rapid progression of cervical dilation. She is at 40-0/7 weeks gestational age with no complications affecting her course. GBS negative, RPR immune. Mother plans to breastfeed after delivery. Plan: Spontaneous rupture of membranes with expectant management. Epidural given for pain control. <Connor Quiñonez - Last Filed: 02/26/19 06:13> L&D History of Present Illness - General Admit Problem/Dx: Admission Diagnosis/Problem Admission Diagnosis/Problem - History of Present Illness Timing/Duration: Reports: constant/continuous H&P Review of Systems - Review of Systems: Review Of Systems: See Below L&D Exam - Exam Exam: See Below - Vital Signs Vital Signs: Last Vital Signs Temp 36.2 C 02/25/19 20:47 Pulse 59 L 02/26/19 05:02 Resp 13 02/26/19 05:02 BP 120/76 02/26/19 05:02 Pulse Ox 97 02/26/19 05:02 - Patient Data Result Diagrams: 02/24/19 16:00 Problem List Initiated/Reviewed/Updated: Yes Orders Last 24hrs: Active Orders 24 hr Category Date Time Status Heat Therapy [OM.PC] PRN Oth 02/25/19 20:27 Ordered Medication Orders Acetaminophen (Tylenol) 650 mg PO Q4H PRN PRN Reason: mild pain or fever Benzocaine/Menthol (Dermoplast Pain Relief [place]) 0 gm TOP ASDIRECTED PRN PRN Reason: Perineal Comfort Measure Last Admin: 02/24/19 21:22 Dose: 1 applic Docusate Sodium (Colace) 100 mg PO BID PRN PRN Reason: Constipation Ibuprofen (Motrin) 600 mg PO Q4H PRN PRN Reason: Mild pain or fever Last Admin: 02/25/19 22:00 Dose: 600 mg Admin: 02/25/19 05:00 Dose: 600 mg Witch Lena (Tucks) 1 pad TOP ASDIRECTED PRN PRN Reason: perineal pain Last Admin: 02/25/19 08:37 Dose: 1 container Admin: 02/24/19 21:22 Dose: 1 applic Assessment/Plan Comment:: I reviewed the document as written by the student and agree with it.
[2019-02-24] MEDS ORDERED: Docusate Sodium 100 MG Cap PO PRN (20:27)
[2019-02-24] MEDS ORDERED: Acetaminophen 325 MG Tab PO PRN (20:27)
[2019-02-24] MEDS ORDERED: Benzocaine/Menthol 20%-0.5% Spray 56 GM Canister TOP PRN (20:27)
[2019-02-24] MEDS: Witch Hazel Medicated Pads 40/Jar TOP PRN (21:22)
[2019-02-25] MEDS: Ibuprofen 600 MG Tab PO PRN ×2 (05:00→22:00)
--- NOTE | 2019-02-25 07:22 | PCM.SN ---
- Free Text/Narrative Note: note: Patient is doing well in the period. Minimal lochia, voiding well, ambulated without problems. Nursing without concerns. Patient is afebrile, vital signs are stable Abdomen is flat, soft, uterus is below the umbilicus and is firm and nontender. Legs are nontender. Assessment: recovery going well. Plan: Routine care. Patient be discharged home within the next 24-48 hours.
[2019-02-25] MEDS: Witch Hazel Medicated Pads 40/Jar TOP PRN (08:37)
--- NOTE | 2019-02-25 09:02 | PCM48HPAN ---
Post Anesthesia Note - EVALUATION WITHIN 48HRS OF ANESTHETIC Vital Signs in Normal Range: Yes Patient Participated in Evaluation: Yes Respiratory Function Stable: Yes Airway Patent: Yes Cardiovascular Function Stable: Yes Hydration Status Stable: Yes Pain Control Satisfactory: Yes Nausea and Vomiting Control Satisfactory: Yes Mental Status Recovered: Yes Vital Signs: Last Vital Signs Temp 36.8 C 02/25/19 02:02 Pulse 73 02/25/19 02:02 Resp 17 02/25/19 02:02 BP 102/69 02/25/19 02:02 Pulse Ox 99 02/25/19 02:02 - COMMENTS/OBSERVATIONS Free Text/Narrative:: Michelle is sitting up in bed this morning. She has been ambulating without difficulty. She does have some mild discomfort at her epidural insertion site. She has no further questions at this time.
--- NOTE | 2019-02-26 06:17 | PCM.DCSUM1 ---
Discharge Summary - Hospital Course Free Text/Narrative:: Michelle is a 28-year-old 2 now para 2002 j 40-0/7 weeks gestational age is 02/24/2019 who had spontaneous rupture membranes at approximately 1400 hrs. today. She went into active labor and rapidly achieved complete cervical dilation by approximately 1830 hrs. She underwent epidural for labor analgesia. Patient pushed very well and delivered a viable, chappell, female infant with Apgars of 7 and 9, length of 20.0 inches and a weight of 2790 g (6 lbs. 9 oz.). Baby delivered in a direct occiput anterior position. Shoulders delivered without problems and baby completely delivered after. After delivery baby was placed on mom's abdomen. Nose and mouth were bulb suctioned. Cord was allowed to pulsate for approximately 2 minutes and was clamped 2 and cut by the baby's father. The umbilical cord had 3 vessels. Cord blood was obtained. Pitocin 500 mL per hour was started after delivery to facilitate increasing uterine tone and decreased likelihood of bleeding. Patient had a minimal first-degree perineal laceration which was repaired with 3-0 Monocryl with 2 sutures. Epidural analgesia was used for perineal anesthesia for the repair. The placenta delivered in a Dunne presentation, appeared intact and complete and was discarded per patient desire. The estimated blood loss was 100 mL.Patient plans to breast-feed. patient has done well. She has minimal lochia. Nursing has gone reasonably well although baby is not latching well. She is working with consultants. She is desiring discharge home. Condition: Good. Diagnosis: Stroke: No - Discharge Data Discharge Date: 02/26/19 Discharge Disposition: Home, Self-Care 01 Condition: Good - Referral to Home Health Primary Care Physician: Connor Quiñonez MD - Patient Instructions Diet: Regular Diet as Tolerated (Nursing diet with increase calories and calcium as recommended) Activity: As Tolerated (No intercourse or tampons until bleeding resolves) Driving: May Drive Today Showering/Bathing: May Shower (May take a bath) Notify Provider of: Fever, Increased Pain, Swelling and Redness, Nausea and/or Vomiting - Discharge Plan Home Medications: Home Meds RX: Pnv No.122/Iron/Folic Acid [ Multi Tablet] 1 each PO DAILY 03/28/17 [History] RX: Ibuprofen [IJD: Ibuprofen] 600 mg PO Q4H PRN tablet 04/12/17 [Rx] RX: Acetaminophen [Tylenol] 650 mg PO Q4H PRN tablet 02/26/19 [Rx] Referrals: Connor Quiñonez MD [Primary Care Provider] - (Return to [facility] weeks.) - Discharge Summary/Plan Comment DC Time >30 min.: No Discharge Summary/Plan Comment: Discharge instructions: 1. Discharge home 2. Diet, activity and follow-up discussed with patient. Recommend nursing diet with increased calories and calcium. 3. Precautions given concern increased pain, bleeding, temperature, signs/ symptoms of DVT/PE. 4. Medications per home medication was printed, discussed with and given to the patient. 5. Return to clinic-Dr. Quiñonez-[facility] in 2 weeks. Diagnosis: Term -delivered Condition: Good - Patient Data Vitals - Most Recent: Last Vital Signs Temp 36.2 C 02/25/19 20:47 Pulse 59 L 02/26/19 05:02 Resp 13 02/26/19 05:02 BP 120/76 02/26/19 05:02 Pulse Ox 97 02/26/19 05:02 Weight - Most Recent: 71 kg I&O - Last 24 hours: Intake & Output 02/25/19 02/25/19 02/26/19 14:59 22:59 06:59 Intake Total 120 360 Balance 120 360 Med Orders - Current: Current Medications Acetaminophen (Tylenol) 650 mg PO Q4H PRN PRN Reason: mild pain or fever Benzocaine/Menthol (Dermoplast Pain Relief [place]) 0 gm TOP ASDIRECTED PRN PRN Reason: Perineal Comfort Measure Last Admin: 02/24/19 21:22 Dose: 1 applic Docusate Sodium (Colace) 100 mg PO BID PRN PRN Reason: Constipation Ibuprofen (Motrin) 600 mg PO Q4H PRN PRN Reason: Mild pain or fever Last Admin: 02/25/19 22:00 Dose: 600 mg Witch Lena (Tucks) 1 pad TOP ASDIRECTED PRN PRN Reason: perineal pain Last Admin: 02/25/19 08:37 Dose: 1 container Discontinued Medications Bupivacaine HCl (Sensorcaine-Mpf 0.25%) 10 ml .ROUTE .STK-MED ONE Stop: 02/24/19 00:01 Ephedrine Sulfate (Ephedrine Sulfate) 5 mg IVPUSH ASDIRECTED PRN PRN Reason: Hypotension Fentanyl (Sublimaze) 100 mcg EPIDUR Q3H PRN PRN Reason: Pain Last Admin: 02/24/19 17:53 Dose: 100 mcg Fentanyl/Bupivacaine HCl (Fentanyl/Bupivacaine/Ns 2 Mcg-0.125% 250 Ml) 250 ml EPIDUR CONTINUOUS PRN PRN Reason: Pain Last Admin: 02/24/19 17:54 Dose: 250 ml Phenylephrine HCl 1 mg/ Sodium (Chloride) 10.1 mls @ 1 mls/sec IV TITRATE NATALEE; Protocol Lactated Ringer's (Ringers, Lactated) 1,000 mls @ 100 mls/hr IV ASDIRECTED NATALEE Last Admin: 02/24/19 18:12 Dose: 100 mls/hr Oxytocin/Lactated Ringer's (Pitocin In Lr 10 Units/1,000 Ml) 10 unit in 1,000 mls @ 500 mls/hr IV .CONTINUOUS NATALEE Last Admin: 02/24/19 19:05 Dose: 500 mls/hr Oxytocin/Lactated Ringer's (Pitocin In Lr 10 Units/1,000 Ml) 10 unit in 1,000 mls @ 12 mls/hr IV TITRATE NATALEE; Protocol Lidocaine HCl (Xylocaine 1%) 50 ml INJECT ONETIME ONE Stop: 02/24/19 15:47 Last Admin: 02/24/19 22:24 Dose: Not Given Nalbuphine HCl (Nubain) 10 mg IVPUSH Q2H PRN PRN Reason: Pain Ondansetron HCl (Zofran) 4 mg IVPUSH ONETIME PRN PRN Reason: Nausea/Vomiting Ondansetron HCl (Zofran Odt) 4 mg PO Q4H PRN PRN Reason: Nausea/Vomiting Sodium Chloride (Saline Flush) 10 ml FLUSH ASDIRECTED PRN PRN Reason: Keep Vein Open
[2019-02-26] MEDS: Ibuprofen 600 MG Tab PO PRN (08:19)
== END 2019-02-26 11:40 | disposition home or self-care (01) | DRG 560 ==
LOC: JD.OB 15:15 → OBSVTOIN 19:00 → JD.OB 19:00
PROVIDERS: ADMIT Obstetrics & Gynecology; ATTEND Obstetrics & Gynecology
PROC: 10E0XZZ Delivery of Products of Conception, External Approach (ICD-10-PCS; principal; 2019-02-24)
PROC: 0HQ9XZZ Repair Perineum Skin, External Approach (ICD-10-PCS; 2019-02-24)
DX: O48.0 Post-term pregnancy (principal); Z3A.40 40 weeks gestation of pregnancy; Z37.0 Single live birth
CPT/HCPCS: 01967; 36415; 51702; 59025; 59409; 85025; 86592; A9270-GY; J2590; J3010; J3490; J7120

== ENCOUNTER 2021-10-19 09:31 | Emergency (ER) | payer BC | END 2021-10-19 12:50 | disposition home or self-care (01) | LOC: JD.ED 09:31 | DX: O99.413 Diseases of the circulatory system complicating pregnancy, third trimester (principal); I49.3 Ventricular premature depolarization; Z3A.31 31 weeks gestation of pregnancy; Z86.16 Personal history of COVID-19 | CPT/HCPCS: 36415; 80053; 81003; 83735; 84443; 84484; 85025; 93005; 93010; 99284 ==